=== PATIENT | female | born 1995 | race Caucasian/White ===

== ENCOUNTER 2022-08-09 02:07 | Outpatient (CLI) | payer OTHER, SELFPAY ==
[2022-08-09 14:44] LABS: Panorama Kit Sent via Fed Ex
[2022-08-09 14:55] LABS: Abs Immature Grans 0.03 10^3/uL (0.0-0.06); Absolute Basophil Count 0.03 10^3/uL (0.0-0.2); Absolute Eosinophil Count 0.43 10^3/uL (0.0-0.7); Absolute Monocyte Count 0.53 10^3/uL (0.1-0.8); Absolute Neutrophil Count 6.66 10^3/uL (1.2-6.7); Basophils % 0.3; Eosinophils % 4.4; HCT 36.5 % (36.0-46.0); Immature Grans % 0.3; Lymphocytes % 22.3; MCH 29.5 pg (27.0-33.0); MCHC 35.6 % (32.0-36.0); MCV 83 fL (80-95); MPV 11.4 fL (8.0-11.0); Monocytes % 5.4; Neutrophils % 67.3; Platelet Count 236 10^3/uL (130-400); RBC 4.41 10^6/uL (3.93-5.22); RDW 12.2 % (11.7-14.6); RDW-SD 37.4 fL; WBC 9.88 10^3/uL (4.4-10.8)
[2022-08-10 09:29] LABS: Hepatitis B Surface Ag Negative (Negative)
[2022-08-10 09:52] LABS: HIV-1/2 Ag & Ab Screen Negative (Negative)
[2022-08-10 10:29] LABS: Hepatitis C Ab w Rflx HCV PCR Negative (Negative)
[2022-08-10 10:43] LABS: Varicella IgG Antibody Positive (See Note)
[2022-08-10 11:48] LABS: Rubella IgG Ab (UVM) Equivocal (See Note)
[2022-08-11 21:58] LABS: Syphilis IgG w/Reflex Nonreactive (Nonreactive)
[2022-08-16 00:50] LABS: Specimen WB Whole Blood
[2022-08-19 12:42] LABS: Result Summary NEGATIVE; Specimen WB Whole Blood
== END 2022-08-09 02:08 | disposition home or self-care (01) ==
LOC: LBO 02:07
PROVIDERS: Advanced Practice Midwife; PCP Nurse Practitioner Family; Visit Provider Advanced Practice Midwife
DX: Z34.02 Encounter for supervision of normal first pregnancy, second trimester
CPT/HCPCS: 36415; 81220; 81222; 81329; 86787; 86803; 86850; 86900; 86901; 87340; 87389; 85025; 86762; 86780

== ENCOUNTER 2022-08-09 15:21 | Outpatient (CLI) | payer OTHER, SELFPAY ==
[2022-08-09 16:42] LABS: *AMPHETAMINES SCREEN URINE Negative (Negative); *BARBITURATES SCREEN URINE Negative (Negative); *BENZODIAZEPINES SCREEN URINE Negative (Negative); Cannabinoids THC Positive (Negative); Cocaine Screen,Urine Negative (Negative); METHADONE URINE SCREEN Negative (Negative); OPIATES URINE SCREEN Negative (Negative)
[2022-08-09 17:22] LABS: Tricyclic Antidepressants Negative (Negative)
[2022-08-11 17:35] LABS: Chlamydia Result Negative (Negative); GC Result Negative (Negative)
[2022-08-17 18:51] LABS: Buprenorphine Negative ng/mL (Cutoff: 5.0); Norbuprenorphine Negative ng/mL (Cutoff: 2.5)
== END 2022-08-09 15:22 | disposition home or self-care (01) ==
LOC: LBN 15:22
PROVIDERS: PCP Nurse Practitioner Family; Visit Provider Advanced Practice Midwife
DX: Z34.91 Encounter for supervision of normal pregnancy, unspecified, first trimester (principal); Z3A.13 13 weeks gestation of pregnancy; Z11.3 Encounter for screening for infections with a predominantly sexual mode of transmission
CPT/HCPCS: 80307; 80348; 87491; 87591; 87086; 87480; 87510; 87660

== ENCOUNTER 2022-08-25 10:30 | Outpatient (REF) | payer OTHER, SELFPAY | END 2022-08-25 10:31 | disposition home or self-care (01) | LOC: LBN 10:30 | PROVIDERS: PCP Nurse Practitioner Family; Visit Provider Advanced Practice Midwife | DX: O26.892 Other specified pregnancy related conditions, second trimester (principal); N89.8 Other specified noninflammatory disorders of vagina; R10.9 Unspecified abdominal pain; Z3A.15 15 weeks gestation of pregnancy | CPT/HCPCS: 87480; 87510; 87660 ==

== ENCOUNTER 2022-09-08 02:43 | Outpatient (CLI) | payer OTHER, SELFPAY ==
[2022-09-13 16:08] LABS: AFP 33.1 ng/mL; Calculated age at EDD 26 years; GA used in risk estimate Scan estimate; IVF Pregnancy No; Initial or repeat testing Initial testing; Insulin dependent diabetes No; Maternal Weight 176 lbs; Number of Fetuses 1; Prev Pregnancy w/NTD No; RECOMMENDED FOLLOW UP None.; Results Summary Normal risk
== END 2022-09-08 02:44 | disposition home or self-care (01) ==
LOC: LBO 02:43
PROVIDERS: Advanced Practice Midwife; PCP Nurse Practitioner Family; Visit Provider Advanced Practice Midwife
DX: O26.892 Other specified pregnancy related conditions, second trimester (principal); Z3A.17 17 weeks gestation of pregnancy
CPT/HCPCS: 36415; 82306; 82105

== ENCOUNTER 2022-09-08 15:49 | Outpatient (REF) | payer OTHER, SELFPAY | END 2022-09-08 15:50 | disposition home or self-care (01) | LOC: LBN 15:49 | PROVIDERS: PCP Nurse Practitioner Family; Visit Provider Advanced Practice Midwife | DX: O98.812 Other maternal infectious and parasitic diseases complicating pregnancy, second trimester (principal); B37.31 Acute candidiasis of vulva and vagina; Z3A.17 17 weeks gestation of pregnancy | CPT/HCPCS: 87480; 87510; 87660 ==

== ENCOUNTER 2022-11-24 01:14 | Outpatient (CLI) | payer OTHER, SELFPAY ==
[2022-11-24 14:00] LABS: HCT 36.6 % (36.0-46.0); HGB 12.7 g/dL (11.2-15.7); MCH 30.2 pg (27.0-33.0); MCHC 34.7 % (32.0-36.0); MCV 87 fL (80-95); MPV 10.6 fL (8.0-11.0); Platelet Count 261 10^3/uL (130-400); RDW 12.5 % (11.7-14.6); RDW-SD 39.7 fL; WBC 12.36 10^3/uL (4.4-10.8)
[2022-11-24 14:32] LABS: Glucose,1 Hr (Glucola) 103 mg/dL (80-140)
== END 2022-11-24 01:15 | disposition home or self-care (01) ==
LOC: LBO 01:14
PROVIDERS: Advanced Practice Midwife; PCP Nurse Practitioner Family; Visit Provider Advanced Practice Midwife
DX: O36.0130 Maternal care for anti-D [Rh] antibodies, third trimester, not applicable or unspecified (principal); O26.893 Other specified pregnancy related conditions, third trimester; Z67.91 Unspecified blood type, Rh negative; Z3A.28 28 weeks gestation of pregnancy
CPT/HCPCS: 36415; 82950; 85027; 86850; 90384

== ENCOUNTER 2022-12-14 01:37 | Outpatient (CLI) | payer OTHER, SELFPAY ==
--- NOTE | 2022-12-14 07:45 | DI.US_ITS ---
Exam(s) US OB BUDDY WEIGHT EXAM: US OB BUDDY WEIGHT CLINICAL HISTORY: growth and BUDDY, covid 19 in , O98.511, U07.1. TECHNIQUE: Transabdominal obstetrical ultrasound performed. COMPARISON: US US OB 2-3 TRIMESTER from 09/28/2022 US US OB F/U FACIAL/LVOT/RVOT from 10/06/2022 FINDINGS:: Number of fetuses: One. position: Vertex. Placental location: Posterior. No evidence of previa. BIOMETRIC DATA: BPD: 77mm = 30+ 5 weeks HC: 306mm = 34+1 weeks, this measures may be exaggerated by incorporating a portion of the scalp AC: 295mm = 33+4 weeks FL: 59 mm = 30+ 5 weeks EFW: 1990 Gms = 70% Composite Age: 32+2 weeks EDC: 06 February 2023 Heart Rate: 164BPM Amniotic fluid index: 20.9 cm. Amount of fluid is visually within normal limits. IMPRESSION: size and weight are within the expected range. DATA REPOSITORY:
== END 2022-12-14 01:57 ==
LOC: DI 01:37
PROVIDERS: PCP Nurse Practitioner Family; Visit Provider Advanced Practice Midwife
DX: O98.513 Other viral diseases complicating pregnancy, third trimester (principal); U07.1 COVID-19
CPT/HCPCS: 76816

== ENCOUNTER 2022-12-14 15:16 | Outpatient (REF) | payer OTHER, SELFPAY ==
[2022-12-14 16:13] LABS: *AMPHETAMINES SCREEN URINE Negative (Negative); *BARBITURATES SCREEN URINE Negative (Negative); *BENZODIAZEPINES SCREEN URINE Negative (Negative); Cannabinoids THC Negative (Negative); Cocaine Screen,Urine Negative (Negative); METHADONE URINE SCREEN Negative (Negative); OPIATES URINE SCREEN Negative (Negative)
[2022-12-14 16:19] LABS: Tricyclic Antidepressants Negative (Negative)
[2022-12-21 23:23] LABS: Buprenorphine Negative ng/mL (Cutoff: 5.0); Norbuprenorphine Negative ng/mL (Cutoff: 2.5)
== END 2022-12-14 15:17 | disposition home or self-care (01) ==
LOC: LBN 15:16
PROVIDERS: PCP Nurse Practitioner Family; Visit Provider Advanced Practice Midwife
DX: F12.90 Cannabis use, unspecified, uncomplicated (principal); O99.320 Drug use complicating pregnancy, unspecified trimester; Z34.90 Encounter for supervision of normal pregnancy, unspecified, unspecified trimester
CPT/HCPCS: 80307; 80348

== ENCOUNTER 2023-01-02 11:22 | Outpatient (CLI) | payer OTHER, SELFPAY ==
--- OUTSIDE RECORDS SUMMARY | 2023-01-02 11:26 | XMS_ITS | Continuity of Care Document ---
Author Name Unknown Organization [facility] Address [address] [place] [address] Care Team Providers Care Die Developer Name Role Phone Deon Espino Primary Care Physician [phone] Encounter [facility]_[place] Date(s): 03/14/22 - 03/14/22 [facility] [address] [place] [address] Discharge Disposition: Home or Self Care Attending Physician: Deon Espino NP Admitting Physician: Deon Espino NP Referring Physician: Deon Espino NP Allergies, Adverse Reactions, Alerts No Known Medication Allergies Substance Reaction Severity Status QUEtiapine Vertigo Dizziness Unknown Active Assessment and Plan Future Appointments Future Scheduled Tests Radiology* XR Chest 2 Views 12/16/21 Immunizations Given and Recorded Vaccine Date Status Refusal Reason hepatitis B adult vaccine 09/07/21 Recorded influenza virus vaccine, live 08/18/21 Recorded Td(adult) unspecified formulation 08/18/21 Recorde d SARS-CoV-2 mRNA vqmxeyxomrx-nvwd-yiiwody 1 08/10/21 Recorded SARS-CoV-2 (COVID-19) Ad26 vaccine 08/19/20 Record ed meningococcal conjugate vaccine 12/27/13 Recorded hepatitis A pediatric vaccine 01/07/10 Recorded hepatitis A pediatric vaccine 08/14/06 Recorded varicella virus vaccine 01/07/10 Recorded varicella virus vaccine 03/07/00 Recorded tetanus/diphth/pertuss (Tdap) adult/adol 01/07/10 Recorded poliovirus vaccine, inactivated 03/07/00 Recorded poliovirus vaccine, inactivated 96 Recorded poliovirus vaccine, inactivated 96 Recorded poliovirus vaccine, inactivated 96 Recorded diphtheria/pertussis, acellular/tetanus 03/07/00 R ecorded diphtheria/pertussis, acellular/tetanus 06/09/97 R ecorded diphtheria/pertussis, acellular/tetanus 96 R ecorded diphtheria/pertussis, acellular/tetanus 96 R ecorded diphtheria/pertussis, acellular/tetanus 96 R ecorded measles/mumps/rubella virus vaccine 03/07/00 Recor ded measles/mumps/rubella virus vaccine 04/01/97 Recor ded haemophilus b conjugate (PRP-T) vaccine 06/09/97 R ecorded haemophilus b conjugate (PRP-T) vaccine 96 R ecorded haemophilus b conjugate (PRP-T) vaccine 96 R ecorded haemophilus b conjugate (PRP-T) vaccine 96 R ecorded hepatitis B pediatric vaccine 04/07/97 Recorded hepatitis B pediatric vaccine 96 Recorded hepatitis B pediatric vaccine 96 Recorded Not Given Vaccine Date Status Refusal Reason DTaP, unspecified formulation 2 05/25/20 Not Given Patient Refuses 1Result Comment: Booster Dose 2Result Comment: Patient Declined Medications buPROPion 150 mg/24 hours (XL) oral tablet, extended release 150 mg 1 tab, Oral, every morning, # 30 tab, 5 Refill(s), Pharmacy: [facility] Start Date: 02/07/22 Status: Ordered Karen FE 1.5/30 oral tablet 1 tab, Oral, Daily, TAKE ONE TABLET BY MOUTH EVERY DAY, # 84 tab, 3 Refill(s), Pharmacy: [facility] Start Date: 02/07/22 Status: Ordered traZODone 50 mg oral tablet 50 mg = 1 tab, Oral, every night at bedtime, For 30 days, # 30 tab, 2 Refill(s), Pharmacy: [facility] Start Date: 01/11/22 Stop Date: 04/11/22 Status: Ordered Vitamin B6 50 mg oral tablet 50 mg = 1 tab, Oral, BID w/Meals, For 30 days Start Date: 01/07/22 Status: Ordered Vitamin D3 5000 intl units oral capsule 125 mcg = 1 cap, Oral, Daily, Daily after meals for 30 days, # 30 cap, 3 Refill(s), Pharmacy: [facility] Start Date: 02/07/22 Status: Ordered Problem List Condition Confirmation Course Effective Dates Status H ealth Status Informant Acne Confirmed Active Adverse reaction to substance Confirmed Active Anxiety disorder Confirmed 12/23/20 Active Cystitis Confirmed Active Dissociative disorder Confirmed 06/30/20 Active Genitourinary symptoms Confirmed Active Gynecologic examination Confirmed Active Insomnia Confirmed 12/23/20 Active Long-term current use of drug therapy Confirmed Active Overweight Confirmed Active Posttraumatic stress disorder Confirmed Active Schizoaffective disorder, mixed type Confirmed 09/23/20 Active Urinary tract infectious disease Confirmed Active Results Laboratory List Name Date Beta hCG Quantitative 03/14/22 CBC w/o Diff 03/14/22 Thyroid Stimulating Hormone (TSH) 2 Most recent to oldest [Reference Range]: 1 WBC [5.0-10.0 x10^3/mcL] 8.3 x10^3/mcL (03/14/22 11:19 AM) RBC [4.1-5.3 x10^6/mcL] 5.0 x10^6/mcL (03/14/22 11:19 AM) MCV [80.0-103.0 fL] 86.3 fL (03/14/22 11:19 AM) MCHC [31.0-35.0 g/dL] 34.6 g/dL (03/14/22 11:19 AM) Hct [37.0-47.0 %] 43.4 % (03/14/22 11:19 AM) MCH [26.0-32.0 pg] 29.8 pg (03/14/22 11:19 AM) Hgb [12.0-16.0 g/dL] 15.0 g/dL (03/14/22 11:19 AM) Platelets [130-450 x10^3/mcL] 297 x10^3/ mcL (03/14/22 11:19 AM) TSH [0.358-3.740 mcIntlUnit/mL] 3.113 mc IntlUnit/mL (03/14/22 11:19 AM) RDW-CV [11.7-17.0 %] 12.4 % (03/14/22 11:19 AM) Beta hCG Qnt [1-6 mIntlUnit/mL] <1 mIntl Unit/mL *LOW* (10/3/22 11:19 AM) Social History Social History Type Response Tobacco Current everyday tob acco user Tobacco Use:. 1/4 PPD per day. Sex Female Patient Care team information Personnel Name: Deon Espino NP Address: Address: [id number] [place] [address]
--- OUTSIDE RECORDS SUMMARY | 2023-01-02 11:26 | XMS_ITS | Continuity of Care Document ---
Author Name Unknown Organization [facility] Address [address] [place] [address] Care Team Providers Care Clinical Rn Name Role Phone SrinivasLandryjason Novak Primary Care Physician [phone] Encounter [facility]CT[facility]_[place] Date(s): 04/20/22 - 04/20/22 [facility] [address] [place] [address] Discharge Disposition: Home or Self Care Attending Physician: Galileo Neil MD Admitting Physician: Galileo Neil MD Referring Physician: Galileo Neil MD Allergies, Adverse Reactions, Alerts No Known Medication Allergies Substance Reaction Severity Status QUEtiapine Vertigo Dizziness Unknown Active Assessment and Plan Future Appointments Future Scheduled Tests Radiology* XR Chest 2 Views 12/16/21 Immunizations Given and Recorded Vaccine Date Status Refusal Reason influenza virus vaccine, inactivated 04/01/22 Give n hepatitis B adult vaccine 09/07/21 Recorded influenza virus vaccine, live 08/18/21 Recorded Td(adult) unspecified formulation 08/18/21 Recorde d SARS-CoV-2 mRNA phbcjockkwe-kcfe-zewrzmr 1 08/10/21 Recorded SARS-CoV-2 (COVID-19) Ad26 vaccine [...] morning, # 30 tab, 5 Refill(s), Pharmacy: [facility] Start Date: 02/07/22 Status: Ordered traZODone 50 mg oral tablet 50 mg = 1 tab, Oral, every night at bedtime, For 30 days, # 30 tab, 2 Refill(s), Pharmacy: [facility] Start Date: 01/11/22 Stop Date: 04/11/22 Status: Ordered Vitamin B6 50 mg oral tablet 50 mg = 1 tab, Oral, BID w/Meals, For 30 days Start Date: 01/07/22 Status: Ordered Vitamin D3 5000 intl units oral capsule 125 mcg = 1 cap, Oral, Daily, Daily after meals for 30 days, # 30 cap, 3 Refill(s), Pharmacy: [facility] Start Date: 02/07/22 Status: Ordered Problem List [...] Laboratory List Name Date Beta hCG Quantitative 04/20/22 Most recent to oldest [Reference Range]: 1 Beta hCG Qnt [1-6 mIntlUnit/mL] <1 mIntl Unit/mL *LOW* (04/20/22 1:29 PM) Social History Social History Type Response Tobacco Current everyday tob acco user Tobacco Use:. 1/4 PPD per day. Sex Female Patient Care team information Care Team Personnel Name: Deon Espino NP Position: Physician Member Role: Primary Care Physician Address: Address: [address] [address]- Care Team Related Persons Name: SOHAM SKAGGS Address: Home [address] [place], [place] [id number] [place] Name: LEONA SKAGGS
--- OUTSIDE RECORDS SUMMARY | 2023-01-02 11:26 | XMS_ITS | Continuity of Care Document ---
Author Name Unknown Organization [facility] Address [address] [place] [address] Care Team Providers Care Car Audio Installer Name Role Phone Deon Espino Primary Care Physician [phone] Encounter [facility]CT[facility]_[place] Date(s): 07/22/22 - 07/22/22 [facility] [address] [place] [address] Discharge Disposition: Home or Self Care Attending [...] unspecified formulation 08/18/21 Recorde d SARS-CoV-2 mRNA vrzcovspjmd-udhl-gmsvorv 1 08/10/21 Recorded SARS-CoV-2 (COVID-19) Ad26 vaccine [...] Booster Dose 2Result Comment: Patient Declined Medications !-Vitamin B6 25 mg oral tablet 25 mg = 1 tab, Oral, QID, # 120 tab, 2 Refill(s), Pharmacy: [id number] Start Date: 07/12/22 Stop Date: 10/10/22 Status: Ordered Paxlovid 150 mg-100 mg (300 mg-100 mg Dose) oral tablet 3 tab, Oral, BID, Take two 150 mg nirmatrelvir tablets with one 100 mg ritonavir tablet at the sametime as indicated on the blister cards. Provide Fact Sheet for Patients/Caregivers, # 30 tab, 0 Refill(s), Pharmacy: [facility] Start Date: 07/22/22 Stop Date: 07/27/22 Status: Ordered Vitamin B6 50 mg oral tablet 50 mg = 1 tab, Oral, BID w/Meals, For 30 days Start Date: 01/07/22 Status: Ordered Vitamin D3 5000 intl units oral capsule 125 mcg = 1 cap, Oral, Daily, Daily after meals for 30 days, # 30 cap, 3 Refill(s), Pharmacy: [facility] Start Date: 02/07/22 Status: Ordered Problem List Condition Confirmation Course Effective Dates Status H ealth Status Informant Acne Confirmed Active Adverse reaction to substance Confirmed Active Anxiety disorder Confirmed 12/23/20 Active Yeast vaginitis Confirmed Active Cystitis Confirmed Active Disease caused by 2019 novel coronavirus 1 Confirmed 07/22/22 Active Dissociative disorder Confirmed 06/30/20 Active Genitourinary symptoms Confirmed Active Gynecologic examination Confirmed Active Insomnia Confirmed 12/23/20 Active Long-term current use of drug therapy Confirmed Active Overweight Confirmed Active Posttraumatic stress disorder Confirmed Active Schizoaffective disorder, mixed type Confirmed 09/23/20 Active Urinary tract infectious disease Confirmed Active 1Problem added by Rule (IC_COVID19_AUTO_PROBLEM) following SARS-CoV-2 (COVID- 19)/Flu/RSV (GeneXpert)from Nasal Swab collected on 22-JUL-2022 12:05:00 EST tested positive for COVID-19. 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 Yes *NA* (07/22/22 12:05 PM) Date of onset (Lab) 20-JUL-2022 *Unknown* (07/22/22 12:05 PM) Hospitalized due to COVID-19? No *NA* (07/22/22 12:05 PM) In ICU? No *NA* (07/22/22 12:05 PM) Group care resident? No *NA* (07/22/22 12:05 PM) status? *NA* (07/22/22 12:05 PM) SARS-CoV-2(Covid19)PCR(GXpert COVFLURSV) [Negative] Positive *ABN* (07/22/22 12:05 PM) Flu A (GXpert COVFLURSV) [Negative] Nega tive (07/22/22 12:05 PM) RSV (GXpert COVFLURSV) [Negative] Negati ve (07/22/22 12:05 PM) Flu B (GXpert COVFLURSV) [Negative] Nega tive (07/22/22 12:05 PM) Social History Social History Type Response Tobacco Former tobacco user Tobacco Use:. 06/15 PPD quit with knowledge per day. Sex Female Patient Care team information Care Team Personnel Name: Deon Espino [employer] DRIVER Position: Physician Member Role: Primary Care Physician Address: Address: [address] [address]- Care Team Related Persons Name: SOHAM SKAGGS Address: Home [address] [place], [place] [id number] Name: LEONA SKAGGS
[2023-01-02 13:03] VITALS: BP 114/80; PULSE 84; TEMP 36.8
[2023-01-02 13:07] VITALS: BP 114/80; PULSE 84
--- NOTE | 2023-01-02 15:22 | W.OBNST ---
Date of service: 01/02/23 Time of Service: 15:22 NST Evaluation Reason for NST Reasons for Nonstress Test: OTHER, SEE COMMENT Reason for NST Other: fall Gestational Age Gestational Age in Weeks and Days: 34 Weeks and 2Days Test and Monitor Explained Test/Monitor Explained: Test Explained, Monitor Explained and Patient Verbalized Understanding Vital Signs Blood Pressure: 114/80 Pulse: 84 Temperature: 98.2 F NST Information Date on Monitor: 01/02/23 Time on Monitor: 13:00 Date off Monitor: 01/02/23 Time off Monitor: 14:03 Total Time on Monitor: 63 NST Interventions: PO Hydration Contraction Frequency: 0 NST Evaluation Patient States Movement: Present FHR Baseline: 145 Variability: Moderate 6-25 bpm Accelerations: 15x15 Decelerations: None NST Results: Reactive Note Ultrasound Done: N/A. NST Note Note: s/p fall onto left hip and side at 0400 today in bedroom No bruising or lacerations visible, abd nontender to palpation Now 1300, no bleeding, no contractions, NST reactive Refer to PT for left sciatica Rh neg and received RhoGam 11/24/22 Given note for work today F/up at regularly scheduled PN appt. NST Reviewed and Verified by: Porsha Brice
[2023-01-02 15:24] VITALS: BP 114/80; PULSE 84; TEMP 36.8
== END 2023-01-02 14:12 | disposition home or self-care (01) ==
LOC: BCD 11:27 → OBS 13:02
PROVIDERS: PCP Nurse Practitioner Family; Visit Provider Advanced Practice Midwife
DX: O9A.213 Injury, poisoning and certain other consequences of external causes complicating pregnancy, third trimester; Z3A.34 34 weeks gestation of pregnancy
CPT/HCPCS: 59025

== ENCOUNTER 2023-01-23 11:52 | Outpatient (REF) | payer OTHER, SELFPAY ==
[2023-01-23 15:19] LABS: *AMPHETAMINES SCREEN URINE Negative (Negative); *BARBITURATES SCREEN URINE Negative (Negative); *BENZODIAZEPINES SCREEN URINE Negative (Negative); Cannabinoids THC Positive (Negative); Cocaine Screen,Urine Negative (Negative); METHADONE URINE SCREEN Negative (Negative); OPIATES URINE SCREEN Negative (Negative)
[2023-01-23 15:22] LABS: Tricyclic Antidepressants Negative (Negative)
[2023-01-31 18:55] LABS: Buprenorphine Negative ng/mL (Cutoff: 5.0)
== END 2023-01-23 11:53 | disposition home or self-care (01) ==
LOC: LBN 11:52
PROVIDERS: PCP Nurse Practitioner Family; Visit Provider Advanced Practice Midwife
DX: Z34.93 Encounter for supervision of normal pregnancy, unspecified, third trimester (principal); Z3A.37 37 weeks gestation of pregnancy; Z36.85 Encounter for antenatal screening for Streptococcus B
CPT/HCPCS: 80307; 80348; 87081

== ENCOUNTER 2023-01-29 09:31 | Inpatient (IN) | payer OTHER, SELFPAY ==
[2023-01-29] VITALS (214 sets, daily range): BP systolic 101–155; BP diastolic 55–105; PULSE 0–112; RESP 16–17; TEMP 35.4–37; O2SAT 90–100; BMI 32.0
[2023-01-29 09:13] LABS: ROM Plus Positive
--- NOTE | 2023-01-29 10:17 | HPE_ITS ---
Date of service: 01/29/23 Time of Service: 10:18 Assessment and Plan Assessment and plan (1) Spontaneous onset of labor: Status: Acute Assessment and plan: Admit to Center. Comfort measures. Discussed labor augmentation and Janet prefers to use natural methods such as rupture of forebag before medications for augmentation. She reports that she is now feeling contractions. Will consider labor augmentation if she does not progress into active labor. Anticipate . (2) Group B Streptococcus carrier, +RV culture, currently : Status: Acute Assessment and plan: Will start antibiotic prophylaxis per protocol. OB-HPI Labor/Delivery History of Present Illness Reason for Visit: SROM Chief Complaint: Uterine Contractions; Suspected Rupture of Membranes , Associated Signs and Symptoms of Suspected ROM: none. LYNDA Calculator Estimated Delivery Date Method Current WG Current Estimate 02/11/23 Ultrasound #1 38w 1d Other Estimates 02/03/23 LMP (Certain) 39w 2d 02/11/23 Ultrasound #2 38w 1d Comments: Janet called at 0330 and reported a small gush of fluid while she was voiding. She was no longer leaking when sh called. She denied contractions and was encouraged to rest and come in to the Center when she awoke. She came in and ROM plus was performed and was positive. History of Present Expected Delivery Route/Plan - CNM FOB - Jeremy Andrade (first child) BG [place] GBS positive Rubella non immune, offer MMR Wants to use tub room, avoid epidural, take placenta home Specific Issues/Plan 1. History of depression, anxiety and ADHD, borderline personality- Taking wellbutrin prior to . 1a. Restarted wellbutrin 09/2022, seeing a psychiatrist 1b. Requested information about starting medication for anxiety - options reviewed, will discuss with psychiatrist 1c. Started sertraline 25 mg daily. 2. Smoker - Decreased to 4-5 per day -attempting to quit. 2a. 12/29 - 1-2 cigarettes per day 3. Family history of autism - FOB and his brother 4. Genetic testing options reviewed - panorama- WNL, Cf/SMA neg, AFP NL risk 5. Rh neg, RhoGam @ 28 wks 11/24/22. 6. UDS at initial OB is THC+, repeated @ 28 wks and is THC negative. 7. Covid infection in first trimester - 32 wk growth US: 70th%, BUDDY 21 8. Morphology US incomplete, repeat 10/06/22 completed scan PFSH All Active Problems (Updated 01/29/23 @ 10:22 by Juliet Silverman CNM) Spontaneous onset of labor (Acute) Group B Streptococcus carrier, +RV culture, currently (Acute) Sciatica of left side (Acute) Marijuana use during (Acute) Rh negative state in antepartum period (Acute) Abdominal pain (Acute) Candidiasis of vagina during (Acute) Abdominal cramps (Acute) Rubella non-immune status, antepartum (Acute) COVID-19 affecting in first trimester (Acute) +07/22/22 works for her PCP and they are managing (Acute) Medical History (Updated 01/29/23 @ 10:22 by Juliet Silverman CNM) Anxiety about health Anxiety disorder Autism spectrum Bilateral carpal tunnel syndrome Daytime sleepiness Eating disorder, unspecified Left-sided tinnitus Major depression, chronic Family History (Updated 08/09/22 @ 13:29 by Juliet Silverman CNM) Father Cancer skin cancer Hypothyroid Paternal Grandmother Breast cancer Other Dementia Heart disease Social History (Updated 03/30/22 @ 13:02 by Idania Davenport RN) Smoking/Tobacco Use Status: Current every day Tobacco Type: cigarettes Smoking risk assessment performed?: Yes Alcohol Intake: current Alcohol Intake frequency: a few times a month Drug use: Occasionally Substance use type: marijuana current occupation: visual merchandising specialist and primary care in [place] Pets and animals: Yes Pets and animals: cat(s) and dog(s) What is your relationship status?: living with partner Panel score (0-1 are the most socially isolated patients): 1 History History 1 Para 0 Hx # Term Pregnancies 0 Multiple births 0 Hx # Pregnancies 0 Ectopic pregnancies 0 AB induced 0 Hx Number of Living Children 0 AB spontaneous 0 Meds Allergies and Home Medications Allergies Allergy/AdvReac Type Severity Reaction Status Date / Time quetiapine Allergy Dizziness/L Verified 01/23/23 11:27 ighthead Home Medications Medication Instructions Recorded Confirmed Type prenat.vits,jaye,qau-ugdt-vbmjn 1 tab PO DAILY 06/17/22 01/23/23 History pyridoxine (vitamin B6) 50 mg 25 mg PO QID PRN 09/08/22 01/23/23 History tablet loratadine 10 mg tablet (Claritin) 10 mg PO DAILY 09/19/22 01/23/23 History bupropion HCl 150 mg 24 hr tablet, 150 mg PO QAM 11/03/22 01/23/23 History extended release (Wellbutrin XL) sertraline 25 mg tablet 25 mg PO DAILY 11/03/22 01/23/23 History cholecalciferol (vitamin D3) 125 125 mcg PO DAILY 12/14/22 01/23/23 History mcg (5,000 unit) capsule Exam Physical Exam Vital signs: Pulse BP 75 121/79 01/29/23 08:54 01/29/23 08:54 Detailed Labor and Delivery Exam Armstrong Score: Cervical Points Exam 0 1 2 3 Dilation Closed 1-2cm 3-4 cm 5-6cm Effacement 0-30% 40-50% 60-70% 80% Consistency Firm Medium Soft Station -3 -2 -1,0 +1,+2 Position Posterior Mid Anterior Pooling: Negative ROM Plus: Positive Monitor Mode: External Contraction Frequency(min): every 4 minutes Contraction Duration(sec): 50 Contraction Intensity: Mild Comments: exam deferred at this time. Fetus A Heart Rate Baseline: 140 Monitor Accelerations: 15 X 15 Monitor Decelerations: None Variability: Moderate (6-25 BPM) Presentation: Vertex Categories: Category I Date of Membrane Rupture: 01/29/23 Time of Membrane Rupture: 03:00 Respiratory Exam Respiratory Exam: Normal Cardiovascular Exam Cardiovascular Exam: Normal Abdominal Exam Abdominal Exam: Normal Exam Exam: Normal Extremities Exam Extremities Exam: Normal Skin Exam Skin Exam: Normal Psychiatric Exam Psychiatric Exam: Normal Risk Assessment Risk for Shoulder Dystocia Historical/Initial OB: NEGATIVE FOR: Pelvic Abnormality, Pre- BMI>30, Previous Shoulder Dystocia or Previous Macrosomia 36 Weeks: POSITIVE FOR: Maternal Weight Gain>40lbs; NEGATIVE FOR: Current Gestational DM or EFW>4500gms 40 Weeks: POSTIVE FOR: Maternal Weight Gain >40lb Increased Risk?: Yes Delivery Plan @ 36wks: NVD Risk for Pre-Eclampsia Yes, if one or more: NEGATIVE FOR: Hx Pre-E/Gest HTN, Chronic HTN, Multiple Gestation, Pre-gestational DM, Renal Disease, Systemic Lupus or APA Syndrome Yes, if 2 or more: POSITIVE FOR: Nulliparity; NEGATIVE FOR: Age>= 35 yrs, >10yr btwn pregnancies, BMI>30, ethinicty, Mother/Sister w/ Pre-E or Previous IUGR Risk for Post- Hemorrhage Initial: NEGATIVE FOR: Multiple Gestation, Previous PPH, Known Clotting De ficiency, Grand Multiparity or Anticoagulation 36 Weeks: NEGATIVE FOR: Anemia, hgb<10, Low platelets(thrombocytopenia), Gestational HTN or Pre-E, Polyhydraminios or EFW>4500gms 40 Weeks: NEGATIVE FOR: Anemia, hgb<10, Low platelets (thrombocytopenia), Gestation HTN or Pre-E, Polyhydraminios or EFW>4500gms At Risk?: No Counseled re: Active Management: Yes Date/Initials: 01/23/23 Risks Reviewed Risks Reviewed Upon Admission: Yes
[2023-01-29 10:52] LABS: HCT 38.1 % (36.0-46.0); MCH 29.4 pg (27.0-33.0); MCHC 34.1 % (32.0-36.0); MCV 86 fL (80-95); MPV 11.8 fL (8.0-11.0); Platelet Count 246 10^3/uL (130-400); RBC 4.42 10^6/uL (3.93-5.22); RDW 13.1 % (11.7-14.6); RDW-SD 40.5 fL; WBC 11.06 10^3/uL (4.4-10.8)
[2023-01-29] MEDS: Normal Saline Flush 10 ML SYR IVP ×2 (11:40→17:41)
[2023-01-29] MEDS: Penicillin G POT. 5,000,000 UNITS in Normal Saline 100 ML 200 UNITS IVPB (11:41)
[2023-01-29] MEDS: Lactated Ringers 1,000 ML 125 ML IV ×2 (11:41→20:28)
--- NOTE | 2023-01-29 11:59 | PGE_ITS ---
Date of service: 01/29/23 Time of Service: 11:59 Pelvic Exam Dilation: 1 Effacement (%): 50 station: -2 Cervix Position: posterior Consistency: medium Pooling: Negative Comments: AROM performed Contractions Monitor Mode: External Contraction Frequency(min): irregular Contraction Duration(sec): 40-50 Intensity: Mild Fetus A Monitor: External (US) Heart Rate Baseline: 140 Presentation: Vertex Variability: Moderate (6-25 BPM) Categories: Category I Accelerations: 15 X 15 Decelerations: None Amniotic Membrane Status: Ruptured Rupture Method: Artifical Amniotic Fluid: Clear Amount: large Assessment and Plan Assessment and plan (1) Group B Streptococcus carrier, +RV culture, currently : Status: Acute Assessment and plan: IV start attempted x 4 by Center RNs. Request made for assistance of medical surgical first assistant who started left antecubital IV. Penecillin started per protocol. (2) Spontaneous onset of labor: Status: Acute Assessment and plan: AROM of forebag performed. misoprostol ordered per protocol when Center staffing allows and third RN is present on the unit. Janet and her partner Jeremy agree with this plan. Objective Abnormal lab results 01/29/23 Range/Units 10:40 WBC 11.06 H (4.4-10.8) 10^3/uL MPV 11.8 H (8.0-11.0) fL Pulse BP 75 121/79 01/29/23 08:54 01/29/23 08:54 Laboratory Results WBC 11.06 10^3/uL (4.4-10.8) H 01/29/23 10:40 RBC 4.42 10^6/uL (3.93-5.22) 01/29/23 10:40 Hgb 13.0 g/dL (11.2-15.7) 01/29/23 10:40 Hct 38.1 % (36.0-46.0) 01/29/23 10:40 MCV 86 fL (80-95) 01/29/23 10:40 MCH 29.4 pg (27.0-33.0) 01/29/23 10:40 MCHC 34.1 % (32.0-36.0) 01/29/23 10:40 RDW 13.1 % (11.7-14.6) 01/29/23 10:40 Plt Count 246 10^3/uL (130-400) 01/29/23 10:40 MPV 11.8 fL (8.0-11.0) H 01/29/23 10:40 Membranes Rupture Positive 01/29/23 08:30 Patient ABO/Rh A Negative 01/29/23 10:40 Antibody Screen POSITIVE 01/29/23 10:40 Subjective Interval history since last seen: Janet continues to experience mild cramping. neg pooling. Results Hemoglobin/Hematocrit: Hgb 13.0 g/dL (11.2-15.7) 01/29/23 10:40 Hct 38.1 % (36.0-46.0) 01/29/23 10:40 Abnormal Lab Findings: Abnormal Labs 01/29/23 10:40 WBC 11.06 H MPV 11.8 H
[2023-01-29] MEDS: miSOPROStol 25 MCG TAB 50 MCG PO (13:17)
[2023-01-29] MEDS: Calcium Carbonate *TUMS* 500 MG CHEW PO (13:56)
[2023-01-29] MEDS: Penicillin G POT. 3,000,000 UNITS in Normal Saline 50 ML 100 UNITS IVPB ×2 (16:32→20:10)
--- NOTE | 2023-01-29 16:58 | W.PM.OBNL1 ---
Date of service: 01/29/23 Time of Service: 16:58 Pelvic Exam Comments: exam deferred at this time. Contractions Monitor Mode: External Contraction Frequency(min): 2-3 Contraction Duration(sec): 60 Intensity: Moderate/Strong Fetus A Monitor: External (US) Heart Rate Baseline: 140 Variability: Moderate (6-25 BPM) Categories: Category I Accelerations: 15 X 15 Decelerations: None Amniotic Membrane Status: Ruptured Assessment and Plan Assessment and plan (1) Spontaneous onset of labor: Status: Acute Assessment and plan: Will continue to offer comfort measures and offer pain relief medications if desired. Objective Abnormal lab results 01/29/23 Range/Units 10:40 WBC 11.06 H (4.4-10.8) 10^3/uL MPV 11.8 H (8.0-11.0) fL Temp Pulse Resp BP 98.6 F 84 17 130/83 01/29/23 14:51 01/29/23 16:55 01/29/23 12:42 01/29/23 16:48 Laboratory Results WBC 11.06 10^3/uL (4.4-10.8) H 01/29/23 10:40 RBC 4.42 10^6/uL (3.93-5.22) 01/29/23 10:40 Hgb 13.0 g/dL (11.2-15.7) 01/29/23 10:40 Hct 38.1 % (36.0-46.0) 01/29/23 10:40 MCV 86 fL (80-95) 01/29/23 10:40 MCH 29.4 pg (27.0-33.0) 01/29/23 10:40 MCHC 34.1 % (32.0-36.0) 01/29/23 10:40 RDW 13.1 % (11.7-14.6) 01/29/23 10:40 Plt Count 246 10^3/uL (130-400) 01/29/23 10:40 MPV 11.8 fL (8.0-11.0) H 01/29/23 10:40 Membranes Rupture Positive 01/29/23 08:30 Patient ABO/Rh A Negative 01/29/23 10:40 Antibody Screen POSITIVE 01/29/23 10:40 Antibody Identification Anti-D 01/29/23 10:40 Subjective Interval history since last seen: Janet is experiencing strong, regulsr contractions. She is coping well with the support of her partner Jeremy and his mother. She is receiving second dose of antibiotic. Results Hemoglobin/Hematocrit: Hgb 13.0 g/dL (11.2-15.7) 01/29/23 10:40 Hct 38.1 % (36.0-46.0) 01/29/23 10:40 Abnormal Lab Findings: Abnormal Labs 01/29/23 10:40 WBC 11.06 H MPV 11.8 H
--- NOTE | 2023-01-29 17:08 | PDOC.NST_ITS ---
Date of service: 01/29/23 Time of Service: 10:00 NST Evaluation Reason for NST Reasons for Nonstress Test: OTHER, SEE COMMENT Reason for NST Other: R/O SROM Gestational Age Gestational Age in Weeks and Days: 38 Weeks and 1Days Test and Monitor Explained Test/Monitor Explained: Test Explained, Monitor Explained and Patient Verbalized Understanding Vital Signs Blood Pressure: 121/79 Pulse: 75 Temperature: 98.4 F NST Information Date on Monitor: 01/29/23 Time on Monitor: 08:25 Date off Monitor: 01/29/23 Time off Monitor: 09:42 Total Time on Monitor: 77 NST Interventions: PO Hydration Contraction Frequency: Irregular NST Evaluation Patient States Movement: Present FHR Baseline: 125 Variability: Moderate 6-25 bpm Accelerations: 15x15 Decelerations: None NST Results: Reactive Note Ultrasound Done: N/A. NST Note Note: Janet reports leaking of fluid at 0300 this morning. Reactive NST. Irregular, mild contractions noted. ROM plus was positive and Janet was admitted in early labor. NST Reviewed and Verified by: Juliet Silverman
--- NOTE | 2023-01-29 19:13 | W.PM.OBNL1 ---
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 IV fluid bolus. Will plan pitocin augmentation after epidural is in place. Anticipate . Objective Abnormal lab results 01/29/23 Range/Units 10:40 WBC 11.06 H (4.4-10.8) 10^3/uL MPV 11.8 H (8.0-11.0) fL Temp Pulse Resp BP 98.6 F 75 17 126/83 01/29/23 18:00 01/29/23 19:11 01/29/23 12:42 01/29/23 17:52 Laboratory Results WBC 11.06 10^3/uL (4.4-10.8) H 01/29/23 10:40 RBC 4.42 10^6/uL (3.93-5.22) 01/29/23 10:40 Hgb 13.0 g/dL (11.2-15.7) 01/29/23 10:40 Hct 38.1 % (36.0-46.0) 01/29/23 10:40 MCV 86 fL (80-95) 01/29/23 10:40 MCH 29.4 pg (27.0-33.0) 01/29/23 10:40 MCHC 34.1 % (32.0-36.0) 01/29/23 10:40 RDW 13.1 % (11.7-14.6) 01/29/23 10:40 Plt Count 246 10^3/uL (130-400) 01/29/23 10:40 MPV 11.8 fL (8.0-11.0) H 01/29/23 10:40 Membranes Rupture Positive 01/29/23 08:30 Patient ABO/Rh A Negative 01/29/23 10:40 Antibody Screen POSITIVE 01/29/23 10:40 Antibody Identification Anti-D 01/29/23 10:40 Subjective Interval history since last seen: Janet has been using the shower and ball, She complains of fatigue and requests an epidural. Results Hemoglobin/Hematocrit: Hgb 13.0 g/dL (11.2-15.7) 01/29/23 10:40 Hct 38.1 % (36.0-46.0) 01/29/23 10:40 Abnormal Lab Findings: Abnormal Labs 01/29/23 10:40 WBC 11.06 H MPV 11.8 H
--- NOTE | 2023-01-29 19:33 | W.ANESPRE ---
General Info Date of Service Date Performed: 01/29/23 Height: 5 ft 9 in Weight: 98.43 kg Body Mass Index (BMI): 32.0 Meds Allergies and Home Medications Allergies Allergy/AdvReac Type Severity Reaction Status Date / Time quetiapine Allergy Dizziness/L Verified 01/23/23 11:27 ighthead Home Medication Medication Instructions Recorded prenat.vits,jaye,uuz-rbuz-fkyio 1 tab PO DAILY 06/17/22 pyridoxine (vitamin B6) 50 mg 25 mg PO QID PRN 09/08/22 tablet loratadine 10 mg tablet (Claritin) 10 mg PO DAILY 09/19/22 bupropion HCl 150 mg 24 hr tablet, 150 mg PO QAM 11/03/22 extended release (Wellbutrin XL) sertraline 25 mg tablet 50 mg PO DAILY 11/03/22 cholecalciferol (vitamin D3) 125 125 mcg PO DAILY 12/14/22 mcg (5,000 unit) capsule Current Visit Medications: Current Medications Generic Name Dose Route Start Last Admin Trade Name Freq PRN Reason Stop Dose Admin Bupropion HCl 150 mg 01/30/23 08:30 Bupropion-Xl 150 Mg Tabcr PO QAM LEONARD Calcium Carbonate 500 mg 01/29/23 13:34 01/29/23 13:56 Calcium Carbonate *Tums* 500 Mg Chew PO 500 mg TID PRN PRN Administration Sodium Chloride 500 mls @ 0 mls/hr 01/29/23 10:14 Saline 500ml Bag IV PRN PRN As Directed Penicillin G Potassium 3,000, 50 mls @ 100 mls/hr 01/29/23 16:00 01/29/23 16:32 000 units/ Sodium Chloride IVPB 100 mls/hr Q4H LEONARD Administration Ringer's Solution 1,000 mls @ 125 mls/hr 01/29/23 11:30 01/29/23 12:52 IV 0 mls/hr INFUSION LEONARD Infusion Ringer's Solution 1,000 mls @ 200 mls/hr 01/29/23 11:30 IV INFUSION LEONARD Ringer's Solution 1,000 mls @ 125 mls/hr 01/29/23 19:30 IV INFUSION LEONARD Sodium Chloride 500 mls @ 0 mls/hr 01/29/23 19:20 Saline 500ml Bag IV PRN PRN As Directed Oxytocin/Sodium Chloride 30 unit in 500 mls @ 2 mls/hr 01/29/23 19:30 Pitocin/Normal Saline IV INFUSION [facility] Protocol 2 MILLIUNITS/MIN IV Miscellaneous Supplies 1 each 01/29/23 10:15 Iv Access IV DIRECTED [facility] IV Miscellaneous Supplies 1 each 01/29/23 19:30 Iv Access IV DIRECTED [facility] Misoprostol 50 mcg 01/29/23 17:00 Misoprostol 25 Mcg Tab PO Q4H [facility] Sertraline HCl 50 mg 01/30/23 08:30 Sertraline 50 Mg Tab PO DAILY [facility] Sodium Chloride 0 ml 01/29/23 10:14 01/29/23 17:41 Normal Saline Flush 10 Ml Syr IVP 10 ml PRN PRN Administration Sodium Chloride 0 ml 01/29/23 19:20 Normal Saline Flush 10 Ml Syr IVP PRN PRN Terbutaline Sulfate 0.25 mg 01/29/23 11:19 Terbutaline 1 Mg/Ml Vial SC PRN PRN Zolpidem Tartrate 10 mg 01/29/23 21:00 Zolpidem 5 Mg Tab PO 01/30/23 06:00 2100 [facility] PFSH Active Problems Active Problems: Problem Status Onset Code Prolonged rupture of membranes O42.90 Spontaneous onset of labor Group B Streptococcus carrier, +RV culture, currently O99.820 Sciatica of left side M54.32 Marijuana use during O99.320, F12.90 Rh negative state in antepartum period O26.899, Z67.91 Abdominal pain R10.9 Candidiasis of vagina during O98.819, B37.31 Abdominal cramps R10.9 Rubella non-immune status, antepartum O09.899, Z28.39 COVID-19 affecting in first trimester O98.511, U07.1 Z34.90 Medical History Medical History (Updated 01/29/23 @ 19:16 by Juliet Silverman CNM) Anxiety about health Anxiety disorder Autism spectrum Bilateral carpal tunnel syndrome Daytime sleepiness Eating disorder, unspecified Left-sided tinnitus Major depression, chronic Tobacco Smoking/Tobacco Use Status: Current every day Tobacco Type: cigarettes Alcohol Alcohol Intake: former Substance Use Substance use: Occasionally Substance use type: marijuana Details: Pt states no current use with Prental History History 1 Para 0 Hx # Term Pregnancies 0 Multiple births 0 Hx # Pregnancies 0 Ectopic pregnancies 0 AB induced 0 Hx Number of Living Children 0 AB spontaneous 0 Vital Signs and Lab Results Vital Signs Most Recent Vital Signs in EMR: Most Recent Vital Signs Temp Pulse Resp BP 37 C 78 17 126/83 01/29/23 18:00 01/29/23 19:31 01/29/23 12:42 01/29/23 17:52 Lab Results 01/29/23 10:40 Blood Type / Crossmatch: Patient ABO/Rh A Negative 01/29/23 Antibody Screen POSITIVE 01/29/23 Complete Blood Count: White Blood Count 11.06 10^3/uL (4.4-10.8) H 01/29/23 10:40 Red Blood Count 4.42 10^6/uL (3.93-5.22) 01/29/23 10:40 Hemoglobin 13.0 g/dL (11.2-15.7) 01/29/23 10:40 Hematocrit 38.1 % (36.0-46.0) 01/29/23 10:40 Platelet Count 246 10^3/uL (130-400) 01/29/23 10:40 Complete Metabolic Panel: No Data to Display Liver Function Panel: No Data to Display Coagulation Panel: No Data to Display Cardiac Panel: No Data to Display Arterial Blood Gas: No Data to Display Venous Blood Gas: No Data to Display Pancreas Panel: No Data to Display Thyroid Panel: No Data to Display Infectious Disease: No Data to Display Blood Cultures: No Data to Display Toxicology Panel: Urine Amphetamines Screen Negative (Negative) 01/23/23 11:30 Urine Benzodiazepines Screen Negative (Negative) 01/23/23 11:30 Urine Barbiturates Screen Negative (Negative) 01/23/23 11:30 Urine Cocaine Screen Negative (Negative) 01/23/23 11:30 Urine Methadone Screen Negative (Negative) 01/23/23 11:30 Urine Opiates Screen Negative (Negative) 01/23/23 11:30 Ur Tricyclic Antidepressants Screen Negative (Negative) 01/23/23 11:30 Ur Tetrahydrocannabinol (THC) Scrn Positive (Negative) A 01/23/23 11:30 Panel: No Data to Display Anesthesia Assessment and Plan Anesthesia History Personal History: No History of Anesthesia Complications Family History: No Family History of Anesthesia Complications Exercise Tolerance Exercise Tolerance: Metabolic Equivalents>4 Pertinent Negatives Pertinent Negatives: No Major Cardiovascular Symptoms or Complaints and No Major Pulmonary Symptoms or Complaints Cardiac & Pulmonary Exam Cardiac Exam: Normal S1/S2 Heart Sounds Pulmonary Exam: Clear Bilateral Breath Sounds Implantable Cardiac Device Does patient have a Pacemaker or an ICD?: No Airway Exam Known Difficult Airway: No Mallampati Class: 1 Mouth Opening: Normal (> 3cm) Thyromental Distance: Greater than 3 cm Neck Range of Motion: Full ROM Neck Circumference: Normal Teeth Condition: Normal Dentition Airway Comments: Nose ring ASA Classification ASA Score: ASA 2 Emergency Case?: No NPO Status NPO Status: NPO Clears >2 hours, Solids >8 hours Status Status: Confirmed Anesthesia Plan Resuscitation Status: Full Code Anesthesia Technique: Labor Epidural Airway Planned: Natural Airway Monitors Used: Standard Monitors
--- NOTE | 2023-01-29 20:17 | W.ANESNEU ---
Epidural/Spinal Catheter Date Performed: 01/29/23 Procedure Start: 19:56 Procedure Stop: 20:18 Requesting Provider: Juliet Silverman Procedure Location: Obstetrics Reason Performed: Labor Epidural Standard Monitors Applied: Blood Pressure, SpO2 and See EMR for corresponding vital signs Patient Position: Sitting Sedation Given (Indicate Dose Given): No Sedation given Patient Mental Status: Awake Sterility: Hand Hygiene, Surgical Cap, Surgical Mask, Sterile Gloves, Sterile Drape/Sheet and Chlorhexidine Procedure Location: L3-L4 Interspace Epidural Needle: Tuohy 18 Gauge Needle Length: 3.5 Inch Needle Approach: Midline Epidural Procedure: Skin Prepped, Sterile Drape Placed, 1% Lidocaine to skin and subcutaneous tissue with 25G needle, Tuohy Needle placed, HAO to Saline Used, Epidural Catheter Placed, Negative Heme, Negative CSF Flow and Tuohy Needle Removed Catheter Placed?: Catheter Placed Test Dose (Indicate Dose Given): 3ml 1.5% Lidocaine with 1:200K Epinephrine Given and Negative Test Dose Loss of Resistance Depth (cm): 6 Catheter depth at skin (cm): 12 Dressing: [place] Dressing Placed and Mastisol Used Epidural Provider Bolus (Indicate Dose Given): Total bolus dose given in 3-5 ml divided doses and Total Bupivacaine 0.25% Given (ml) Dose:: 6 ml Additives (Indicate Dose Given ): Fentanyl PF Dose:: 100mcg Infusion Medication: Medication Infusion Began Medication Infusion: Ropivacaine 0.1% with Fentanyl 2mcg/ml Maintenance Infusion Rate (ml/hour): 10 PCEA Bolus Dose (ml): 5 Post Procedure Pain score (0-10): 0 Block Level: N/A Paresthesia: None Ultrasound: Not Used Number of Attempts (See previous attempts in note section): 1 Procedure Tolerated: No Complications and Patient tolerated well Procedure Outcome: Successful Procedure Comment:: Comfort bilaterally, slight upper thigh numbness, good motor strength jordi LE Performed By: Beatriz Clifton
[2023-01-29] MEDS: fentaNYL 100 MCG/2 ML VIAL (20:25)
[2023-01-29] MEDS: Bupivacaine 0.25% Pres-Free 10 ML VIAL (20:25)
[2023-01-29] MEDS: Oxytocin/Normal Saline 30 UNIT/500 ML BAG 2 UNITS IV (20:33)
[2023-01-29] MEDS: FentaNYL/ROPIvacaine 2 mcg/ml and 0.1% 200 ML CADD Cassette EP (20:34)
[2023-01-30] VITALS (18 sets, daily range): BP systolic 111–142; BP diastolic 66–79; PULSE 74–96; RESP 16–20; TEMP 36.7–37; O2SAT 97–99
--- NOTE | 2023-01-30 00:20 | OBVDS_ITS ---
Date of service: 01/30/23 Time of Service: 00:20 OB Labor/ Delivery Information Baby A Delivery Delivery Method: Spontaneaous Presentation: Cephalic Amniotic Fluid: Clear Estimated Blood Loss: 200 Delivery Outcome: Liveborn Infant Transferred: Remains with Mother Note: Janet received an epidural with excellent effect. FHTs 140s during first stage of labor. FHTs 130s in second stage with occasional variable decelerations. Janet slept well and awoke with pressure and had progressed to full dilation and began pushing. Second stage huddle was done. Spontaneous delivery of female infant delivered in SUZE position. Baby was placed on mother's abdomen and dried and stimulated. Spontaneous cry. Cord was clamped and cut by the baby's father. The placenta delivered spontaneously and appears to by intact with a three vessel cord. Pitocin 30 units IV was administered after delivery of the placenta. The perineum was inspected and a first degree right vaginal laceration was repaired. The baby did breastfeed. After delivery, Mother and baby and father of the baby were stable and bonding well in the delivery room and there were no complications. Providers Nurse Patent Litigation Associate: Juliet Silverman Nurse: Gogo Davidson Nurse: Jesica Chacon Labor/Delivery Information Number of Babies in Womb: 1 Steroids Given: None Reason Steroids Not Administered: N/A Group Beta Strep: Positive Antibiotics Administered: Yes Number of Doses of Antibiotics: 3 Rubella Status: Nonimmune Blood Type: A- Varicella Immunity: Immune Maternal Complications: None Shoulder Dystocia: No Stages of Labor Onset of Labor Date: 01/29/23 Onset of Labor Time: 03:30 Complete Dilatation Date: 01/29/23 Complete Dilatation Time: 23:20 Labor - Stage 1 Duration: 19 hours and 50 minutes ROM Baby A: 01/29/23 ROM Baby A: 11:45 ROM Total Time- Baby A: [id number] Infant Delivery Date-Baby A: 01/29/23 Infant Delivery Time-Baby A: 23:43 Labor Stage 2 Duration: 23 minutes Placenta Delivery Date-Baby A: 01/29/23 Placenta Delivery Time-Baby A: 23:49 Labor-Stage 3 Duration: 6 minutes Total Length of Labor-Baby A: 20 hours and 13 minutes Placenta Cultured: No Placenta Status: Delivered Baby A Infant Gender: Female Gestational Status: Term (39-41.6 wks) Gestational Age in Weeks/Days: 38 Weeks and 1 Days Score-1 Minute Interval(Baby A) Heart Rate-1 minute: 100 BPM or Greater Respiratory Effort- 1 minute: Spontaneous/Strong Cry Muscle Tone-1 minute: Active Movement Reflex Response-1 minute: Prompt Response Color-1 minute: Bluish Hands or Feet Total Score-1 minute: 9 Score-5 Minute Interval(Baby A) Heart Rate- 5 minute: 100 BPM or Greater Respiratory Effort-5 minute: Spontaneous/Strong Cry Muscle Tone-5 minute: Active Movement Reflex Response-5 minute: Prompt Response Color-5 minute: Bluish Hands or Feet Total Score- 5 minute: 9 Interventions Repair of Laceration Type: Other (vaginal), Laceration Extension: First Degree. Sponge Count Correct: No Sponges Placed in Vagina, Sharp Count Correct: Yes. Laceration Repair Note: repaired with 3-0 vicryl suture under epidural anesthesia which Janet tolerated well.
[2023-01-30] MEDS: Hamamelis Leaf/Glycerin 100 EACH BOX PR (01:36)
[2023-01-30] MEDS: Calcium Carbonate *TUMS* 500 MG CHEW PO (01:36)
[2023-01-30] MEDS: Dibucaine 1% 28 GM TUBE TP (01:36)
[2023-01-30] MEDS: Sertraline 50 MG TAB PO (07:39)
[2023-01-30] MEDS: buPROPion-XL 150 MG TABCR PO (07:39)
[2023-01-30] MEDS: Acetaminophen 325 MG TAB 650 MG PO ×2 (07:39→16:21)
[2023-01-30] MEDS: Ibuprofen 600 MG TAB PO ×2 (07:39→13:33)
--- NOTE | 2023-01-30 11:14 | W.PM.OBPNV1 ---
Date of service: 01/30/23 Time of Service: 11:14 Assessment and Plan Assessment and plan (1) Term of female : Status: Acute Assessment and plan: Caring for baby independently. Pain is managed well with oral analgesics. Voiding without difficulty. well. A - stable mother and baby , Post day 1 P - Discharge to home tomorrow. Routine post instructions. [facility] (2) Anxiety disorder: Assessment and plan: Will continue wellbutrin 150 mg and sertraline 50 mg post . Follow up with psychiatrist Exam Physical Exam Vital signs: Temp Pulse Resp BP Pulse Ox 98.2 F 74 18 112/79 97 01/30/23 08:26 01/30/23 08:26 01/30/23 10:00 01/30/23 08:26 01/30/23 08:26 Narrative: SP vaginal delivery late last night. Resting comfortable and caring for baby independently. Respiratory Exam Respiratory Exam: Normal Cardiovascular Exam Cardiovascular Exam: Normal Fundal Exam Fundus: Below Umbilicus and Firm Extremities Exam Extremity Exam: Normal Skin Exam Skin Exam: Normal Psychiatric Exam Psychiatric Exam: Normal Results Hemoglobin/Hematocrit: Hgb 13.0 g/dL (11.2-15.7) 01/29/23 10:40 Hct 38.1 % (36.0-46.0) 01/29/23 10:40 Abnormal Lab Findings: Abnormal Labs 01/29/23 10:40 WBC 11.06 H MPV 11.8 H
--- NOTE | 2023-01-30 11:42 | W.ANESPOSTOP ---
Postoperative Evaluation Date, Time and Location Date Performed: 01/30/23 Time Performed: 11:05 Patient Location: Obstetrics Vital Signs Most Recent Imported Vital Signs: Most Recent Vital Signs Temp Pulse Resp BP Pulse Ox 36.8 C 74 18 112/79 97 01/30/23 08:26 01/30/23 08:26 01/30/23 10:00 01/30/23 08:26 01/30/23 08:26 Pain Score Most Recent Pain Score: Most Recent Pain Score Pain Level [Abdomen] 0 01/30/23 05:55 Pain Level 0 01/29/23 20:43 Assessment Mental Status: Awake (Alert & Oriented to Patient Baseline) Airway and Respiratory Function: Patent airway with normal (patient baseline) respiratory exam Cardiovascular Function: Hemodynamically Stable Hydration Status: Adequately Hydrated Nausea & Vomiting: No Nausea or Vomiting Pain: Pt. Denies Any Pain Peripheral Nerve Block: Patient did not receive a nerve block
[2023-01-31] MEDS: Ibuprofen 600 MG TAB PO (04:35)
[2023-01-31] MEDS: Acetaminophen 325 MG TAB 650 MG PO (04:36)
[2023-01-31 07:27] VITALS: BP 108/69; PULSE 70; RESP 18; TEMP 36.6; O2SAT 97
[2023-01-31] MEDS: buPROPion-XL 150 MG TABCR PO (08:13)
[2023-01-31] MEDS: Sertraline 50 MG TAB PO (08:13)
[2023-01-31] MEDS: Docusate Sodium 100 MG CAP PO (08:13)
[2023-01-31] MEDS: Measles, Mumps, & Rubella Vaccine 0.5 ML VIAL SC (08:14)
--- NOTE | 2023-01-31 11:41 | DSE_ITS ---
Date of service: 01/31/23 Time of Service: 12:45 DS: Diagnosis Discharge Diagnosis (1) Term of female : Status: Acute Asessment and Plan: Caring for baby independently. Pain is managed well with oral analgesics. Voiding without difficulty. well. A - stable mother and baby , Post day 2 P - Discharge to home. Routine post instructions. [facility] up at [facility]. (2) Anxiety disorder: Asessment and Plan: Janet has expressed concerns about post depression to her psychiatrist. Her dose of sertraline was increased to 50 mg prioir to admission. Shehas good family support and signs of post depression reviewed. Her psychiatrist has recommended that she increase to 75 mg after discharge. Discharge Plan Disposition Patient Disposition: Home Condition: Good Discharge Details Reason For Visit: SROM Admit Date/Time: 01/29/23 09:31 Admit Provider: Juliet Silverman Attending Provider: Juliet Silverman Primary Care Provider: Deon Espino Home Meds and New Rx's Prescriptions: New ibuprofen 600 mg Tablet 600 mg PO Q6H PRN PRNQty: 30 0RF Continued prenat.vits,jaye,qkt-dabo-xkybe Tablet 1 tab PO DAILY bupropion HCl [Wellbutrin XL] 150 mg tablet extended release 24 hr 150 mg PO QAM sertraline 25 mg tablet 50 mg PO DAILY Patient Comments: Pt states it was just increased from 25mg-50mg this past week cholecalciferol (vitamin D3) 125 mcg (5,000 unit) capsule 125 mcg PO DAILY loratadine [Claritin] 10 mg tablet 10 mg PO DAILY pyridoxine (vitamin B6) 50 mg tablet 25 mg PO QID PRN Discharge Instructions Stand Alone Forms: BC Instructions, BC Post Vaginal Deliver Activity:: Activity as Tolerated Equipment/Supplies:: No Equipment Needed Diet:: As Tolerated Discharge Orders Discharge Orders: Discharge Order (Routine); Ordered 01/31/23 Ordered By: Juliet Silverman OB:DS Summary Summary Vaginal Delivery Method: Spontaneaous Episiotomy Description: None Laceration Description: Other (vaginal) Laceration Extension: First Degree Contraception Discussed Contraception Discussed: Yes Contraceptive Plan: Control Pill/Patch, Organ Infant Gender-Baby A: Female weight: 7 lb 11.635 oz Status at Discharge Functional status at discharge: independent ambulation Overall status at discharge: patient is back to baseline Mental Status: mental status grossly normal Speech and Movement: speech and movement normal Mood: congruent mood Affect: normal affect Exam Physical Exam Vital signs: Temp Pulse Resp BP Pulse Ox 97.9 F 70 18 108/69 97 01/31/23 07:27 01/31/23 07:27 01/31/23 07:27 01/31/23 07:27 01/31/23 07:27 Constitutional Comments: Janetreports that she feels well Respiratory Exam Respiratory Exam: Normal Cardiovascular Exam Cardiovascular Exam: Normal Fundal Exam Fundus: Below Umbilicus and Firm Exam Perineum: Repair Intact Extremities Exam Extremity Exam: Normal Skin Exam Skin Exam: Normal Psychiatric Exam Psychiatric Exam: Normal PFSH All Active Problems (Updated 01/30/23 @ 11:18 by Juliet Silverman CNM) Term of female (Acute) Sciatica of left side (Acute) Rh negative state in antepartum period (Acute) Rubella non-immune status, antepartum (Acute) Medical History Anxiety about health Anxiety disorder Autism spectrum Bilateral carpal tunnel syndrome Daytime sleepiness Eating disorder, unspecified Left-sided tinnitus Major depression, chronic Marijuana use Family History (Updated 08/09/22 @ 13:29 by Juliet Silverman CNM) Father Cancer skin cancer Hypothyroid Paternal Grandmother Breast cancer Other Dementia Heart disease Social History (Updated 03/30/22 @ 13:02 by Idania Davenport RN) Smoking/Tobacco Use Status: Current every day Tobacco Type: cigarettes Smoking risk assessment performed?: Yes Alcohol Intake: former Drug use: Occasionally Substance use type: marijuana Details: Pt states no current use with Housing: house current occupation: radiology scheduler and primary care in [place] Pets and animals: Yes Pets and animals: cat(s) and dog(s) What is your relationship status?: living with partner Panel score (0-1 are the most socially isolated patients): 1 History History 1 Para 0 Hx # Term Pregnancies 0 Multiple births 0 Hx # Pregnancies 0 Ectopic pregnancies 0 AB induced 0 Hx Number of Living Children 0 AB spontaneous 0 DS: Data Vitals/I&O Vitals and I&O: Vital Signs Temperature 97.9 F 01/31/23 07:27 Temperature 98.4 F 01/29/23 17:09 Temperature Source Oral 01/31/23 07:27 Pulse 70 01/31/23 07:27 Pulse 75 01/29/23 17:09 Pulse Rhythm Regular 01/31/23 07:27 Respiratory Rate 18 01/31/23 07:27 Blood Pressure 108/69 01/31/23 07:27 Blood Pressure 121/79 01/29/23 17:09 Blood Pressure Mean 82 01/31/23 07:27 Pulse Oximetry 97 01/31/23 07:27 Oxygen Delivery Method Room Air 01/29/23 12:29 Oxygen Flow Rate 0 01/29/23 12:29 Pain Level 3 01/31/23 04:36 Comment Asleep 01/29/23 21:03 Intake & Output 01/30/23 01/30/23 01/31/23 11:59 23:59 11:59 Intake Total 920.866 / 920.866 Output Total 850 / 1300 450 / 1300 Balance 70.866 / -379.134 -450 / -379.134 Intake: IV 920.866 / 920.866 Output: Urine 850 / 1300 450 / 1300 Other: Urine Color Pale
== END 2023-01-31 12:50 | disposition home or self-care (01) | DRG 806 ==
LOC: OBS 10:38 → BCD 01-30 10:55
PROVIDERS: Admitting Provider Advanced Practice Midwife; PCP Nurse Practitioner Family; Visit Provider Advanced Practice Midwife
DX: O99.824 Streptococcus B carrier state complicating childbirth (principal); F84.0 Autistic disorder; Z37.0 Single live birth; O36.0930 Maternal care for other rhesus isoimmunization, third trimester, not applicable or unspecified; Z3A.38 38 weeks gestation of pregnancy; O99.344 Other mental disorders complicating childbirth; F99 Mental disorder, not otherwise specified; F41.8 Other specified anxiety disorders; O99.334 Smoking (tobacco) complicating childbirth; F17.210 Nicotine dependence, cigarettes, uncomplicated; O99.324 Drug use complicating childbirth; F12.90 Cannabis use, unspecified, uncomplicated; O70.0 First degree perineal laceration during delivery; F60.3 Borderline personality disorder; F90.9 Attention-deficit hyperactivity disorder, unspecified type; M54.32 Sciatica, left side; G56.03 Carpal tunnel syndrome, bilateral upper limbs; F50.9 Eating disorder, unspecified; O75.89 Other specified complications of labor and delivery
CPT/HCPCS: 36415; 84112; 85027; 86850; 86900; 86901; 59025; 86870; J2540; J3010; J3490

== ENCOUNTER 2024-06-26 14:54 | Outpatient (REF) | payer BC, MEDICAID, SELFPAY ==
[2024-06-28 11:58] LABS: Chlamydia Result Negative (Negative); GC Result Negative (Negative)
== END 2024-06-26 14:55 | disposition home or self-care (01) ==
LOC: LBN 14:54
PROVIDERS: PCP Nurse Practitioner Family; Visit Provider Obstetrics & Gynecology
DX: Z30.430 Encounter for insertion of intrauterine contraceptive device (principal)
CPT/HCPCS: 87491; 87591